=== PATIENT | female | born 1960 | race African-American/Black ===

== ENCOUNTER 2016-12-12 17:02 | Emergency (ER) | payer MEDICARE, MEDICAID ==
[~2016-12-12] VITALS: Ht 165.1 cm; Wt 110.0 kg
[~2016-12-12 17:02] MED LIST: AMIT25TA9 PO; AMLO5TAB4 PO; BACL-141 PO; CLOP75TA2 PO; LOSA50TA20 PO; METO-293 PO; PREG75CA PO
[2016-12-12] MEDS ORDERED: KETOROLAC 60MG/2ML VIAL IM ONE (18:15)
[2016-12-12] MEDS ORDERED: TRAMADOL 50MG TABLET PO ONE (18:15)
[2016-12-12] MEDS ORDERED: AMLODIPINE 5MG TABLET PO ONE (18:45)
[2016-12-12] MEDS ORDERED: HYDROCODONE/ACETAMINOPHEN 5/325MG TABLET PO PRN (20:30)
[2016-12-12 22:33] VITALS: BP 162/93
== END 2016-12-12 22:58 | disposition home or self-care (01) ==
LOC: ER 17:03
DX: M54.2 Cervicalgia (principal); R51 Headache; E78.00 Pure hypercholesterolemia, unspecified; I11.9 Hypertensive heart disease without heart failure; Z86.73 Personal history of transient ischemic attack (TIA), and cerebral infarction without residual deficits; Z95.1 Presence of aortocoronary bypass graft; Z79.899 Other long term (current) drug therapy; Z88.8 Allergy status to other drugs, medicaments and biological substances; Z91.011 Allergy to milk products
CPT/HCPCS: 72125; 96372; 99284; J1885; J7030

== ENCOUNTER 2017-04-27 13:28 | Emergency (ER) | payer MEDICARE, MEDICAID ==
[~2017-04-27] VITALS: Ht 162.6 cm; Wt 105.0 kg
[~2017-04-27 13:28] MED LIST changes: +CLOP75TA16 PO; -CLOP75TA2 PO
[2017-04-27] MEDS ORDERED: SODIUM CHLORIDE 0.9% 1,000 ML IV ONE (15:05)
[2017-04-27] MEDS ORDERED: ONDANSETRON HCL 4MG/2ML VIAL IV STA (15:05)
[2017-04-27] MEDS ORDERED: MECLIZINE 25MG TABLET PO ONE (15:15)
[2017-04-27 16:46] LABS: BASOPHILS % 0.4 % (0.0-2.0); EOSINOPHILS % 1.1 % (0.0-5.0); HEMATOCRIT. 39.4 % (36.0-48.0); HEMOGLOBIN. 13.2 g/dL (12.0-16.0); LYMPHOCYTES % 31.5 % (20.0-50.0); MEAN CORPUSCULAR HEMOGLOBIN 31.8 pg (28.0-32.0); MEAN CORPUSCULAR VOLUME 95.4 fL (81.0-99.0); MEAN PLATELET VOLUME 9.6 fl (7.4-10.4); MONOCYTES % 7.1 % (2.0-8.0); NEUTROPHILS % 59.9 % (40.0-76.0); PLATELET 239 x1000/uL (130-400); RED BLOOD CELL COUNT 4.13 mill/uL (4.2-5.4); RED CELL DISTRIBUTION WIDTH 13.1 % (11.6-14.6)
[2017-04-27 16:58] LABS: CARBON DIOXIDE 26 mEq/L (21-32); CHLORIDE 105 mEq/L (98-107)
[2017-04-27 19:14] LABS: CLARITY URINE CLEAR (CLEAR); COLOR URINE YELLOW (YELLOW); GLUCOSE URINE NEGATIVE (NEGATIVE); KETONES URINE NEGATIVE (NEGATIVE); LEUKOCYTE ESTERASE URINE TRACE (NEGATIVE); NITRITE URINE NEGATIVE (NEGATIVE); OCCULT BLOOD URINE NEGATIVE (NEGATIVE); PROTEIN URINE NEGATIVE (NEGATIVE); SPECIFIC GRAVITY URINE 1.015 (1.005-1.030)
[2017-04-27 19:30] VITALS: BP 124/85
[2017-04-27] MEDS ORDERED: ACETAMINOPHEN 325MG TABLET PO ONE (20:30)
== END 2017-04-27 21:40 | disposition home or self-care (01) ==
LOC: ER 13:28
DX: T67.5XXA Heat exhaustion, unspecified, initial encounter (principal); R53.1 Weakness; K21.9 Gastro-esophageal reflux disease without esophagitis; I10 Essential (primary) hypertension; F41.9 Anxiety disorder, unspecified; Z86.73 Personal history of transient ischemic attack (TIA), and cerebral infarction without residual deficits; Z98.890 Other specified postprocedural states; Z88.8 Allergy status to other drugs, medicaments and biological substances; Z91.013 Allergy to seafood; Z91.011 Allergy to milk products; Y92.89 Other specified places as the place of occurrence of the external cause
CPT/HCPCS: 36415; 80053; 81001; 84484; 85025; 96361; 96374; 99285; J2405; J7030; J8597

== ENCOUNTER 2017-06-10 15:29 | Inpatient (IN) | payer MEDICARE, MEDICAID ==
[~2017-06-10] VITALS: Ht 162.6 cm; Wt 104.3 kg
[2017-06-10] MEDS ORDERED: ASPIRIN 81MG TABLET PO STA (17:39)
[2017-06-10 18:09] LABS: BASOPHILS % 1.1 % (0.0-2.0); HEMATOCRIT. 42.1 % (36.0-48.0); HEMOGLOBIN. 14.3 g/dL (12.0-16.0); LYMPHOCYTES % 35.8 % (20.0-50.0); MEAN CORPUSCULAR HEMOGLOBIN 32.9 pg (28.0-32.0); MEAN CORPUSCULAR VOLUME 96.9 fL (81.0-99.0); MEAN PLATELET VOLUME 9.7 fl (7.4-10.4); MONOCYTES % 6.5 % (2.0-8.0); NEUTROPHILS % 53.6 % (40.0-76.0); PLATELET 255 x1000/uL (130-400); RED BLOOD CELL COUNT 4.34 mill/uL (4.2-5.4); RED CELL DISTRIBUTION WIDTH 13.8 % (11.6-14.6)
[2017-06-10 18:17] LABS: CARBON DIOXIDE 27 mEq/L (21-32); CHLORIDE 107 mEq/L (98-107)
[2017-06-10 18:18] LABS: D-DIMER 0.55 mg/L FEU (<0.50); INR 0.9; PARTIAL THROMBOPLASTIN TIME 25.1 sec (23.4-31.0); PROTHROMBIN TIME 9.8 sec (9.4-11.6)
[2017-06-10 18:23] LABS: TROPONIN I < 0.02 ng/mL (0.00-0.04)
[2017-06-10] MEDS: NITROGLYCERIN 0.4MG TABLET SL SL PRN ×2 (19:55→20:59)
[2017-06-10] MEDS ORDERED: IOHEXOL-350 100 ML BOTTLE ONE (20:36)
[2017-06-10 23:04] VITALS: BP 150/86
[2017-06-10 23:14] VITALS: BP 150/86
[2017-06-10] MEDS ORDERED: NA PHOS,M-B/NA PHOS,DI-BA ENEMA 118ML PR PRN (23:45)
[2017-06-10] MEDS ORDERED: ACETAMINOPHEN 325MG TABLET PO PRN (23:45)
[2017-06-10] MEDS ORDERED: IPRATROPIUM/ALBUTEROL 0.5-3(2.5)MG/3ML NEB INH PRN (23:45)
[2017-06-10] MEDS ORDERED: MAGNESIUM/ALUMINUM HYDROXIDE/SIMETHICONE 30ML UDC PO PRN (23:45)
[2017-06-10] MEDS ORDERED: ACETAMINOPHEN 650MG/20.3ML UDC GT PRN (23:45)
[2017-06-10] MEDS ORDERED: DOCUSATE SODIUM 100MG CAPSULE PO PRN (23:45)
[2017-06-10] MEDS ORDERED: ACETAMINOPHEN 650MG SUPP PR PRN (23:45)
[2017-06-10] MEDS ORDERED: HYDROCODONE/ACETAMINOPHEN 5/325MG TABLET PO PRN (23:45)
[2017-06-10] MEDS ORDERED: GUAIFENESIN 200MG/10ML SUGAR FREE UDC PO PRN (23:45)
[2017-06-10] MEDS ORDERED: CLONIDINE 0.1MG TABLET PO PRN (23:45)
[2017-06-10] MEDS ORDERED: DIPHENHYDRAMINE 50MG/ML VIAL IV PRN (23:45)
[2017-06-11] MEDS: SODIUM CHLORIDE 0.9% 1,000 ML IV SCH ×2 (01:00→17:24)
[2017-06-11] MEDS: ENOXAPARIN 30MG/0.3ML SYR SUBCUT SCH ×3 (01:02→21:17)
[2017-06-11 04:00] VITALS: BP 125/89
[2017-06-11] MEDS: ONDANSETRON HCL 4MG/2ML VIAL IV PRN ×4 (04:46→21:59)
[2017-06-11] MEDS: MORPHINE SULFATE 2 MG/ML CPJ (NOT FOR IM USE) IV PRN ×4 (04:47→22:00)
[2017-06-11 06:44] LABS: BASOPHILS % 0.9 % (0.0-2.0); EOSINOPHILS % 3.6 % (0.0-5.0); HEMOGLOBIN. 12.4 g/dL (12.0-16.0); LYMPHOCYTES % 32.9 % (20.0-50.0); MEAN CORPUSCULAR HEMOGLOBIN 33.4 pg (28.0-32.0); MEAN CORPUSCULAR VOLUME 96.9 fL (81.0-99.0); MEAN PLATELET VOLUME 9.6 fl (7.4-10.4); MONOCYTES % 7.2 % (2.0-8.0); NEUTROPHILS % 55.4 % (40.0-76.0); PLATELET 216 x1000/uL (130-400); RED BLOOD CELL COUNT 3.72 mill/uL (4.2-5.4); RED CELL DISTRIBUTION WIDTH 14.1 % (11.6-14.6)
[2017-06-11] MEDS: SODIUM CHLORIDE 0.9% INJ 3ML FLUSH IVF SCH ×3 (06:45→21:16)
[2017-06-11] MEDS ORDERED: BACLOFEN 10MG TABLET PO PRN (07:15)
[2017-06-11 08:00] VITALS: BP 145/88
[2017-06-11 08:14] LABS: CARBON DIOXIDE 25 mEq/L (21-32); CHLORIDE 108 mEq/L (98-107)
[2017-06-11 08:28] LABS: CREATINE KINASE 72 IU/L (26-192); HDL CHOLESTEROL 76 mg/dL (40-59); LDL CHOLESTEROL 76 mg/dL (5-100); TROPONIN I < 0.02 ng/mL (0.00-0.04)
[2017-06-11] MEDS: LOSARTAN POTASSIUM 50 MG TABLET PO SCH ×2 (08:39→21:17)
[2017-06-11] MEDS: PREGABALIN 75MG CAPSULE PO SCH ×3 (08:39→17:22)
[2017-06-11] MEDS: AMLODIPINE 5MG TABLET PO SCH (08:39)
[2017-06-11] MEDS: IPRATROPIUM/ALBUTEROL 0.5-3(2.5)MG/3ML NEB INH SCH ×3 (08:49→21:48)
[2017-06-11] MEDS: CLOPIDOGREL 75MG TABLET PO SCH (08:50)
[2017-06-11 12:00] VITALS: BP 140/93
[2017-06-11 12:38] LABS: T4 FREE 0.91 ng/dL (0.76-1.46)
[2017-06-11] MEDS: METOCLOPRAMIDE HCL 10MG TABLET PO SCH ×2 (14:04→17:22)
[2017-06-11 14:07] LABS: HEPATITIS B SURFACE ANTIGEN NEGATIVE
[2017-06-11 14:34] LABS: HEPATITIS B CORE AB IGM NEGATIVE
[2017-06-11 14:35] LABS: HEPATITIS A AB IGM NEGATIVE (NEGATIVE)
[2017-06-11 16:00] VITALS: BP 116/73
[2017-06-11 16:36] LABS: CREATINE KINASE 64 IU/L (26-192)
[2017-06-11 16:37] LABS: CREATINE KINASE MB FRACTION 0.7 ng/mL (0.5-3.6); TROPONIN I < 0.02 ng/mL (0.00-0.04)
[2017-06-11 20:00] VITALS: BP 132/77
[2017-06-11] MEDS: AMITRIPTYLINE 50MG TABLET PO SCH (21:17)
[2017-06-12] VITALS (7 sets, daily range): BP systolic 122–160; BP diastolic 71–94
[2017-06-12] MEDS: IPRATROPIUM/ALBUTEROL 0.5-3(2.5)MG/3ML NEB INH SCH ×3 (02:12→20:44)
[2017-06-12] MEDS: SODIUM CHLORIDE 0.9% INJ 3ML FLUSH IVF SCH ×3 (05:47→21:01)
[2017-06-12] MEDS: METOCLOPRAMIDE HCL 10MG TABLET PO SCH ×3 (05:55→17:33)
[2017-06-12] MEDS: ONDANSETRON HCL 4MG/2ML VIAL IV PRN (06:32)
[2017-06-12] MEDS: MORPHINE SULFATE 2 MG/ML CPJ (NOT FOR IM USE) IV PRN ×3 (06:33→14:57)
[2017-06-12] MEDS: PREGABALIN 75MG CAPSULE PO SCH ×3 (08:22→17:33)
[2017-06-12] MEDS: CLOPIDOGREL 75MG TABLET PO SCH (08:22)
[2017-06-12] MEDS: ENOXAPARIN 30MG/0.3ML SYR SUBCUT SCH ×2 (08:23→21:00)
[2017-06-12] MEDS: ASPIRIN 81MG TABLET PO SCH ×2 (08:23→08:24)
[2017-06-12] MEDS: AMLODIPINE 5MG TABLET PO SCH (08:23)
[2017-06-12] MEDS: LOSARTAN POTASSIUM 50 MG TABLET PO SCH ×2 (08:23→21:00)
[2017-06-12] MEDS ORDERED: REGADENOSON 0.4 MG/5 ML IV NR (08:45)
[2017-06-12] MEDS: SODIUM CHLORIDE 0.9% 1,000 ML IV SCH (12:38)
[2017-06-12] MEDS: AMITRIPTYLINE 50MG TABLET PO SCH (21:00)
== END 2017-06-12 22:40 | disposition home or self-care (01) | DRG 392 ==
LOC: ER 17:17 → 8WST 19:10 → EDBEDREQ 19:12 → ENRESERV 19:55
PROVIDERS: ADMIT Family Medicine; ATTEND Family Medicine
DX: K21.9 Gastro-esophageal reflux disease without esophagitis (principal); E11.40 Type 2 diabetes mellitus with diabetic neuropathy, unspecified; I11.0 Hypertensive heart disease with heart failure; I50.9 Heart failure, unspecified; F11.20 Opioid dependence, uncomplicated; I25.10 Atherosclerotic heart disease of native coronary artery without angina pectoris; E78.5 Hyperlipidemia, unspecified; Z86.73 Personal history of transient ischemic attack (TIA), and cerebral infarction without residual deficits; Z98.84 Bariatric surgery status; F41.9 Anxiety disorder, unspecified; Z88.8 Allergy status to other drugs, medicaments and biological substances; Z91.011 Allergy to milk products; Z91.013 Allergy to seafood
CPT/HCPCS: 36415; 71010; 71275; 80048; 80053; 80061; 82550; 82553; 83036; 83880; 84439; 84443; 84484; 85025; 85379; 85610; 85730; 86705; 86709; 86803; 87340; 93005; 93306; 93970; 93971; 94640; 94664; 99285; J1650; J2270; J2405; J7030; J7620; J8597; Q9967

== ENCOUNTER 2017-09-15 10:43 | Emergency (ER) | payer MEDICARE, MEDICAID ==
[~2017-09-15] VITALS: Ht 165.1 cm; Wt 83.0 kg
[2017-09-15] MEDS ORDERED: PANT40TA4 PO (10:50)
[2017-09-15] MEDS ORDERED: PREG50CA PO (10:50)
[2017-09-15] MEDS ORDERED: ATOR10TA69 PO (10:50)
[2017-09-15] MEDS ORDERED: MECL-109 PO (10:50)
[2017-09-15] MEDS ORDERED: RANI300T4 PO (10:50)
[2017-09-15] MEDS ORDERED: MELA3TAB PO (10:50)
[2017-09-15] MEDS ORDERED: MORPHINE SULFATE 4 MG/ML CPJ (NOT FOR IM USE) IV STA (10:58)
[2017-09-15 11:35] LABS: CHLORIDE 105 mEq/L (98-107)
[2017-09-15 11:38] LABS: BASOPHILS % 0.5 % (0.0-2.0); EOSINOPHILS % 1.3 % (0.0-5.0); HEMATOCRIT. 41.8 % (36.0-48.0); HEMOGLOBIN. 13.9 g/dL (12.0-16.0); LYMPHOCYTES % 24.2 % (20.0-50.0); MEAN CORPUSCULAR HEMOGLOBIN 32.4 pg (28.0-32.0); MEAN CORPUSCULAR VOLUME 97.6 fL (81.0-99.0); MEAN PLATELET VOLUME 9.3 fl (7.4-10.4); MONOCYTES % 6.1 % (2.0-8.0); NEUTROPHILS % 67.9 % (40.0-76.0); PLATELET 268 x1000/uL (130-400); RED BLOOD CELL COUNT 4.28 mill/uL (4.2-5.4); RED CELL DISTRIBUTION WIDTH 13.4 % (11.6-14.6)
[2017-09-15 11:42] LABS: PROTHROMBIN TIME 10.3 sec (9.4-11.6)
[2017-09-15 11:44] LABS: CARBON DIOXIDE 27 mEq/L (21-32)
[2017-09-15 13:22] LABS: CLARITY URINE CLEAR (CLEAR); COLOR URINE YELLOW (YELLOW); KETONES URINE NEGATIVE (NEGATIVE); LEUKOCYTE ESTERASE URINE NEGATIVE (NEGATIVE); NITRITE URINE NEGATIVE (NEGATIVE); OCCULT BLOOD URINE NEGATIVE (NEGATIVE); PH URINE 7.5 (4.5-8.0); PROTEIN URINE NEGATIVE (NEGATIVE); SPECIFIC GRAVITY URINE 1.015 (1.005-1.030)
[2017-09-15 14:34] VITALS: BP 159/60
== END 2017-09-15 15:29 | disposition home or self-care (01) ==
LOC: ER 10:54
DX: R10.9 Unspecified abdominal pain (principal); F41.9 Anxiety disorder, unspecified; I10 Essential (primary) hypertension; K21.9 Gastro-esophageal reflux disease without esophagitis; F31.9 Bipolar disorder, unspecified; Z95.1 Presence of aortocoronary bypass graft; Z86.73 Personal history of transient ischemic attack (TIA), and cerebral infarction without residual deficits; Z90.49 Acquired absence of other specified parts of digestive tract; Z98.84 Bariatric surgery status
CPT/HCPCS: 36415; 74176; 80053; 81003; 83690; 85025; 85610; 96374; 99285; J2270

== ENCOUNTER 2017-12-01 15:47 | Emergency (ER) | payer MEDICARE, MEDICAID ==
[~2017-12-01] VITALS: Ht 162.6 cm; Wt 131.0 kg
[~2017-12-01 15:47] MED LIST changes: +ATOR10TA69 PO; +MECL-109 PO; +MELA3TAB PO; +PANT40TA4 PO; +PREG50CA PO; +RANI300T4 PO
[2017-12-01 16:05] VITALS: BP 139/89
== END 2017-12-01 20:07 | disposition left against medical advice (07) ==
LOC: ER 15:47
DX: H53.8 Other visual disturbances (principal); R51 Headache; I10 Essential (primary) hypertension; I69.354 Hemiplegia and hemiparesis following cerebral infarction affecting left non-dominant side; Z98.84 Bariatric surgery status
CPT/HCPCS: 99281

== ENCOUNTER 2018-01-15 18:02 | Emergency (ER) | payer MEDICARE, MEDICAID ==
[~2018-01-15] VITALS: Ht 167.6 cm; Wt 110.0 kg
[2018-01-15] MEDS ORDERED: HYDROCODONE/ACETAMINOPHEN 10/325MG TABLET PO ONE (19:30)
[2018-01-15 23:29] VITALS: BP 135/79
== END 2018-01-16 00:51 | disposition home or self-care (01) ==
LOC: ER 18:23
DX: M79.605 Pain in left leg (principal); F31.9 Bipolar disorder, unspecified; K21.9 Gastro-esophageal reflux disease without esophagitis; F41.9 Anxiety disorder, unspecified; I10 Essential (primary) hypertension; Z86.73 Personal history of transient ischemic attack (TIA), and cerebral infarction without residual deficits; Z95.1 Presence of aortocoronary bypass graft; Z98.84 Bariatric surgery status; Z88.8 Allergy status to other drugs, medicaments and biological substances; Z91.011 Allergy to milk products; Z79.01 Long term (current) use of anticoagulants; W05.0XXA Fall from non-moving wheelchair, initial encounter; Y93.89 Activity, other specified; Y92.89 Other specified places as the place of occurrence of the external cause; Y99.8 Other external cause status
CPT/HCPCS: 72170; 73552; 73560; 73610; 73630; 99284

== ENCOUNTER 2018-03-16 14:18 | Emergency (ER) | payer BC, MEDICAID, MEDICARE ==
[~2018-03-16] VITALS: Ht 162.6 cm; Wt 105.0 kg
[~2018-03-16 14:18] MED LIST changes: +LEVO250T2 MT
[2018-03-16] MEDS ORDERED: SODIUM CHLORIDE 0.9% 1,000 ML IV ONE (16:18)
[2018-03-16] MEDS ORDERED: ONDANSETRON HCL 4MG/2ML VIAL IV STA ×2 (16:18→19:33)
[2018-03-16] MEDS ORDERED: KETOROLAC 30MG/ML VIAL IV STA (16:18)
[2018-03-16 17:55] LABS: BASOPHILS % 0.6 % (0.0-2.0); EOSINOPHILS % 1.6 % (0.0-5.0); HEMATOCRIT. 37.1 % (36.0-48.0); HEMOGLOBIN. 12.4 g/dL (12.0-16.0); LYMPHOCYTES % 34.6 % (20.0-50.0); MEAN CORPUSCULAR HEMOGLOBIN 32.5 pg (28.0-32.0); MEAN CORPUSCULAR VOLUME 97.3 fL (81.0-99.0); MONOCYTES % 6.4 % (2.0-8.0); NEUTROPHILS % 56.8 % (40.0-76.0); RED BLOOD CELL COUNT 3.81 mill/uL (4.2-5.4); RED CELL DISTRIBUTION WIDTH 13.3 % (11.6-14.6)
[2018-03-16] MEDS ORDERED: FAMOTIDINE 20MG/2ML VIAL IV STA (17:55)
[2018-03-16 18:06] LABS: CHLORIDE 106 mEq/L (98-107)
[2018-03-16 18:10] LABS: ETHANOL BLOOD < 10 mg/dL
[2018-03-16 18:36] LABS: PLATELET 229 x1000/uL (130-400)
[2018-03-16 18:37] LABS: MEAN PLATELET VOLUME 9.7 fl (7.4-10.4)
[2018-03-16] MEDS ORDERED: MORPHINE SULFATE 4 MG/ML CPJ (NOT FOR IM USE) IV STA (19:33)
[2018-03-16 19:46] LABS: CLARITY URINE CLEAR (CLEAR); COLOR URINE YELLOW (YELLOW); KETONES URINE NEGATIVE (NEGATIVE); LEUKOCYTE ESTERASE URINE NEGATIVE (NEGATIVE); NITRITE URINE NEGATIVE (NEGATIVE); OCCULT BLOOD URINE NEGATIVE (NEGATIVE); PH URINE 5.5 (4.5-8.0); PROTEIN URINE NEGATIVE (NEGATIVE); SPECIFIC GRAVITY URINE 1.007 (1.005-1.030); UROBILINOGEN URINE 0.2 E.U./dL (0.2-1.0)
[2018-03-16] MEDS ORDERED: IOHEXOL-300 100 ML BOTTLE ONE (21:13)
[2018-03-17 00:06] VITALS: BP 120/64
== END 2018-03-17 00:23 | disposition home or self-care (01) ==
LOC: ER 14:27
DX: R10.84 Generalized abdominal pain (principal); I10 Essential (primary) hypertension; E78.00 Pure hypercholesterolemia, unspecified; I69.354 Hemiplegia and hemiparesis following cerebral infarction affecting left non-dominant side; Z88.8 Allergy status to other drugs, medicaments and biological substances; Z91.011 Allergy to milk products; Z91.013 Allergy to seafood
CPT/HCPCS: 36415; 74177; 80053; 81003; 83690; 84484; 85025; 85610; 93005; 96374; 96375; 96376; 99285; G0482; J1885; J2270; J2405; J3490; J7030; Q9967

== ENCOUNTER 2018-03-22 06:15 | Emergency (ER) | payer OTHER, MEDICAID ==
[~2018-03-22] VITALS: Ht 162.6 cm; Wt 118.0 kg
[2018-03-22] MEDS ORDERED: OXYCODONE HCL/ACETAMINOPHEN 5/325MG TABLET PO ONE ×2 (07:45→10:15)
[2018-03-22 10:31] VITALS: BP 148/94
== END 2018-03-22 10:36 | disposition home or self-care (01) ==
LOC: ER 08:11
DX: S50.02XA Contusion of left elbow, initial encounter (principal); S70.02XA Contusion of left hip, initial encounter; I69.354 Hemiplegia and hemiparesis following cerebral infarction affecting left non-dominant side; M19.90 Unspecified osteoarthritis, unspecified site; E78.00 Pure hypercholesterolemia, unspecified; I10 Essential (primary) hypertension; M47.896 Other spondylosis, lumbar region; Z88.8 Allergy status to other drugs, medicaments and biological substances; Z91.011 Allergy to milk products; Z91.013 Allergy to seafood; Z98.84 Bariatric surgery status; W07.XXXA Fall from chair, initial encounter; Y93.E1 Activity, personal bathing and showering; Y92.121 Bathroom in nursing home as the place of occurrence of the external cause
CPT/HCPCS: 72170; 73070; 99284

== ENCOUNTER 2018-03-28 13:54 | Emergency (ER) | payer OTHER, MEDICAID ==
[~2018-03-28] VITALS: Ht 167.6 cm; Wt 100.0 kg
[2018-03-28] MEDS ORDERED: SODIUM CHLORIDE 0.9% 1,000 ML IV ONE (16:00)
[2018-03-28] MEDS ORDERED: FAMOTIDINE 20MG/2ML VIAL IV STA (16:00)
[2018-03-28] MEDS ORDERED: MORPHINE SULFATE 4 MG/ML CPJ (NOT FOR IM USE) IV STA (16:00)
[2018-03-28] MEDS ORDERED: ONDANSETRON HCL 4MG/2ML VIAL IV STA (16:00)
[2018-03-28] MEDS ORDERED: MORPHINE SULFATE 4 MG/ML CPJ (NOT FOR IM USE) IV ONE ×2 (18:45→18:55)
[2018-03-28] MEDS ORDERED: ONDANSETRON HCL 4MG/2ML VIAL IV ONE (18:45)
[2018-03-28] MEDS ORDERED: KETOROLAC 30MG/ML VIAL IV ONE (18:45)
[2018-03-28 19:14] LABS: CLARITY URINE CLEAR (CLEAR); COLOR URINE YELLOW (YELLOW); KETONES URINE NEGATIVE (NEGATIVE); LEUKOCYTE ESTERASE URINE TRACE (NEGATIVE); NITRITE URINE NEGATIVE (NEGATIVE); OCCULT BLOOD URINE NEGATIVE (NEGATIVE); PROTEIN URINE NEGATIVE (NEGATIVE); SPECIFIC GRAVITY URINE 1.012 (1.005-1.030)
[2018-03-28 19:30] LABS: *AMPHETAMINES SCREEN URINE NEGATIVE (NEGATIVE); *BARBITURATES SCREEN URINE NEGATIVE (NEGATIVE); *BENZODIAZEPINES SCREEN URINE NEGATIVE (NEGATIVE); *COCAINE SCREEN URINE NEGATIVE (NEGATIVE)
[2018-03-28 19:31] LABS: CANNABINOID URINE SCREEN NEGATIVE (NEGATIVE); METHADONE URINE SCREEN NEGATIVE (NEGATIVE); OPIATES URINE SCREEN PRESUMTIVE POSITIVE (NEGATIVE); PHENCYCLIDINE URINE SCREEN NEGATIVE (NEGATIVE)
[2018-03-28] MEDS ORDERED: ONDANSETRON HCL 4MG/2ML VIAL IV SCH (19:45)
[2018-03-28] MEDS ORDERED: MORPHINE SULFATE 4 MG/ML CPJ (NOT FOR IM USE) IV SCH (19:45)
[2018-03-28 20:07] LABS: BASOPHILS % 0.3 % (0.0-2.0); EOSINOPHILS % 2.7 % (0.0-5.0); HEMATOCRIT. 37.1 % (36.0-48.0); HEMOGLOBIN. 12.4 g/dL (12.0-16.0); LYMPHOCYTES % 36.2 % (20.0-50.0); MEAN CORPUSCULAR HEMOGLOBIN 32.7 pg (28.0-32.0); MEAN CORPUSCULAR VOLUME 97.6 fL (81.0-99.0); MEAN PLATELET VOLUME 9.4 fl (7.4-10.4); MONOCYTES % 8.7 % (2.0-8.0); NEUTROPHILS % 52.1 % (40.0-76.0); PLATELET 195 x1000/uL (130-400); RED CELL DISTRIBUTION WIDTH 13.5 % (11.6-14.6)
[2018-03-28 20:15] LABS: PROTHROMBIN TIME 10.6 sec (9.4-11.6)
[2018-03-28 20:21] LABS: CHLORIDE 107 mEq/L (98-107)
[2018-03-28 20:30] LABS: ETHANOL BLOOD < 10 mg/dL
[2018-03-28 22:20] VITALS: BP 136/71
== END 2018-03-28 23:25 | disposition home or self-care (01) ==
LOC: ER 15:17 → CANBEDREQ 21:20 → ER 23:25
DX: K21.9 Gastro-esophageal reflux disease without esophagitis (principal); K29.70 Gastritis, unspecified, without bleeding; N39.0 Urinary tract infection, site not specified; E78.00 Pure hypercholesterolemia, unspecified; I10 Essential (primary) hypertension; Z86.73 Personal history of transient ischemic attack (TIA), and cerebral infarction without residual deficits; Z88.8 Allergy status to other drugs, medicaments and biological substances; Z88.6 Allergy status to analgesic agent; Z91.09 Other allergy status, other than to drugs and biological substances; Z91.011 Allergy to milk products; Z98.84 Bariatric surgery status; Z90.49 Acquired absence of other specified parts of digestive tract; Z91.013 Allergy to seafood; Z79.899 Other long term (current) drug therapy
CPT/HCPCS: 36415; 71045; 74176; 80053; 80305; 81003; 83690; 83880; 84484; 85025; 85610; 93005; 96374; 96375; 96376; 99285; G0482; J1885; J2270; J2405; J3490; J7030

== ENCOUNTER 2018-05-11 20:39 | Emergency (ER) | payer OTHER, MEDICAID | END 2018-05-12 | disposition left against medical advice (07) | LOC: ER 20:39 | DX: Z53.21 Procedure and treatment not carried out due to patient leaving prior to being seen by health care provider (principal) ==

== ENCOUNTER 2018-05-27 22:22 | Emergency (ER) | payer OTHER, MEDICAID ==
[~2018-05-27] VITALS: Ht 162.6 cm; Wt 113.0 kg
[2018-05-28 02:49] LABS: CHLORIDE 103 mEq/L (98-107)
[2018-05-28] MEDS ORDERED: HYDROCODONE/ACETAMINOPHEN 5/325MG TABLET PO STA ×2 (03:00→07:35)
[2018-05-28 03:24] LABS: BASOPHILS % 0.3 % (0.0-2.0); EOSINOPHILS % 1.9 % (0.0-5.0); HEMOGLOBIN. 13.2 g/dL (12.0-16.0); MEAN CORPUSCULAR HEMOGLOBIN 32.9 pg (28.0-32.0); MEAN CORPUSCULAR VOLUME 97.2 fL (81.0-99.0); MEAN PLATELET VOLUME 9.5 fl (7.4-10.4); MONOCYTES % 8.6 % (2.0-8.0); NEUTROPHILS % 58.2 % (40.0-76.0); PLATELET 244 x1000/uL (130-400); RED BLOOD CELL COUNT 4.01 mill/uL (4.2-5.4); RED CELL DISTRIBUTION WIDTH 13.5 % (11.6-14.6)
[2018-05-28] MEDS ORDERED: LIDOCAINE HCL 1% 10 MG/ML 10ML VIAL INJ ONE (07:45)
[2018-05-28] MEDS ORDERED: CEFTRIAXONE SODIUM 1 G/VIAL IM ONE (07:45)
[2018-05-28 08:14] VITALS: BP 154/76
[2018-05-28 08:33] LABS: CLARITY URINE CLEAR (CLEAR); COLOR URINE YELLOW (YELLOW); KETONES URINE TRACE (NEGATIVE); LEUKOCYTE ESTERASE URINE 1+ (NEGATIVE); NITRITE URINE NEGATIVE (NEGATIVE); OCCULT BLOOD URINE NEGATIVE (NEGATIVE); PH URINE 5.5 (4.5-8.0); PROTEIN URINE NEGATIVE (NEGATIVE); SPECIFIC GRAVITY URINE 1.018 (1.005-1.030)
== END 2018-05-28 08:38 | disposition home or self-care (01) ==
LOC: ER 22:22
DX: S90.32XA Contusion of left foot, initial encounter (principal); W23.0XXA Caught, crushed, jammed, or pinched between moving objects, initial encounter; Y93.89 Activity, other specified; Y92.89 Other specified places as the place of occurrence of the external cause; N39.0 Urinary tract infection, site not specified; R07.89 Other chest pain; N76.0 Acute vaginitis; I10 Essential (primary) hypertension; Z88.8 Allergy status to other drugs, medicaments and biological substances; Z86.73 Personal history of transient ischemic attack (TIA), and cerebral infarction without residual deficits; Z79.82 Long term (current) use of aspirin; Z79.899 Other long term (current) drug therapy
CPT/HCPCS: 36415; 71045; 73610; 73630; 80053; 81003; 84484; 85025; 93005; 96372; 99285; J0696; J3490; Z7610

== ENCOUNTER 2018-06-02 23:56 | Inpatient (IN) | payer OTHER, MEDICAID ==
[~2018-06-02] VITALS: Ht 162.6 cm; Wt 109.3 kg
[2018-06-03] VITALS (7 sets, daily range): BP systolic 87–141; BP diastolic 51–82
[2018-06-03] MEDS ORDERED: MORPHINE SULFATE 4 MG/ML CPJ (NOT FOR IM USE) IV STA (00:37)
[2018-06-03] MEDS ORDERED: NITROGLYCERIN OINT 1GM/INCH UDPKT TD ONE (00:45)
[2018-06-03 01:14] LABS: BASOPHILS % 0.5 % (0.0-2.0); EOSINOPHILS % 2.2 % (0.0-5.0); HEMATOCRIT. 39.6 % (36.0-48.0); HEMOGLOBIN. 13.3 g/dL (12.0-16.0); LYMPHOCYTES % 38.7 % (20.0-50.0); MEAN CORPUSCULAR HEMOGLOBIN 32.7 pg (28.0-32.0); MEAN CORPUSCULAR VOLUME 97.5 fL (81.0-99.0); MEAN PLATELET VOLUME 10.1 fl (7.4-10.4); MONOCYTES % 6.7 % (2.0-8.0); NEUTROPHILS % 51.9 % (40.0-76.0); PLATELET 251 x1000/uL (130-400); RED BLOOD CELL COUNT 4.06 mill/uL (4.2-5.4); RED CELL DISTRIBUTION WIDTH 13.8 % (11.6-14.6)
[2018-06-03 01:22] LABS: CHLORIDE 103 mEq/L (98-107); INR 0.9; PROTHROMBIN TIME 9.5 sec (9.1-11.1)
[2018-06-03] MEDS ORDERED: CLONIDINE 0.1MG TABLET PO PRN (04:00)
[2018-06-03] MEDS ORDERED: ACETAMINOPHEN 325MG TABLET PO PRN (04:00)
[2018-06-03] MEDS ORDERED: PREG75CA PO (04:02)
[2018-06-03] MEDS ORDERED: HYDR-4009 MT (04:16)
[2018-06-03] MEDS ORDERED: ONDA4TAB11 SL (04:16)
[2018-06-03] MEDS ORDERED: ESCI10TA54 MT (05:10)
[2018-06-03] MEDS ORDERED: FESO8TAB MT ×3 (05:14→05:16)
[2018-06-03] MEDS ORDERED: LIDO30CR TP (05:19)
[2018-06-03] MEDS: MORPHINE SULFATE 4 MG/ML CPJ (NOT FOR IM USE) IV PRN ×3 (05:34→19:53)
[2018-06-03] MEDS: ONDANSETRON HCL 4MG/2ML INJ IV PRN ×3 (05:39→20:01)
[2018-06-03] MEDS ORDERED: ASPIRIN 81MG EC TABLET PO SCH (09:00)
[2018-06-03] MEDS: AMLODIPINE 10MG TABLET PO SCH (09:19)
[2018-06-03] MEDS: ENOXAPARIN 30MG/0.3ML SYR SUBCUT SCH ×2 (09:21→20:02)
[2018-06-03 12:26] LABS: CREATINE KINASE 119 IU/L (26-192)
[2018-06-03] MEDS ORDERED: CLOPIDOGREL 75MG TABLET PO SCH (13:00)
[2018-06-03] MEDS: CLOPIDOGREL 75MG TABLET PO SCH (13:08)
[2018-06-03] MEDS: LOSARTAN POTASSIUM 50 MG TABLET PO SCH (13:08)
[2018-06-03] MEDS: METOCLOPRAMIDE HCL 10MG TABLET PO SCH (16:52)
[2018-06-03 16:58] LABS: CREATINE KINASE 123 IU/L (26-192)
[2018-06-03] MEDS: ATORVASTATIN CALCIUM 10MG TABLET PO SCH (20:02)
[2018-06-03] MEDS ORDERED: ATORVASTATIN CALCIUM 10MG TABLET PO SCH (21:00)
[2018-06-03] MEDS: ZOLPIDEM TARTRATE 5MG TABLET PO PRN (21:24)
[2018-06-03] MEDS: HYDROCODONE/ACETAMINOPHEN 5/325MG TABLET PO PRN (21:24)
[2018-06-04] VITALS: BP_SYST 122; BP_SYST 140; BP_DIAS 61; BP_DIAS 71
[2018-06-04] MEDS: METOCLOPRAMIDE HCL 10MG TABLET PO SCH ×4 (00:21→18:02)
[2018-06-04] MEDS: MORPHINE SULFATE 4 MG/ML CPJ (NOT FOR IM USE) IV PRN ×4 (00:21→22:12)
[2018-06-04 04:00] VITALS: BP 130/65
[2018-06-04] MEDS: HYDROCODONE/ACETAMINOPHEN 5/325MG TABLET PO PRN ×2 (06:11→20:05)
[2018-06-04 07:18] LABS: BASOPHILS % 0.4 % (0.0-2.0); EOSINOPHILS % 3.2 % (0.0-5.0); HEMATOCRIT. 37.8 % (36.0-48.0); HEMOGLOBIN. 12.4 g/dL (12.0-16.0); LYMPHOCYTES % 46.8 % (20.0-50.0); MEAN CORPUSCULAR HEMOGLOBIN 32.5 pg (28.0-32.0); MEAN CORPUSCULAR VOLUME 99.1 fL (81.0-99.0); MEAN PLATELET VOLUME 9.5 fl (7.4-10.4); MONOCYTES % 8.2 % (2.0-8.0); NEUTROPHILS % 41.4 % (40.0-76.0); PLATELET 215 x1000/uL (130-400); RED BLOOD CELL COUNT 3.82 mill/uL (4.2-5.4); RED CELL DISTRIBUTION WIDTH 13.6 % (11.6-14.6)
[2018-06-04 07:59] LABS: CHLORIDE 104 mEq/L (98-107)
[2018-06-04 08:00] VITALS: BP 140/75
[2018-06-04 08:14] LABS: LDL CHOLESTEROL 58 mg/dL (5-100)
[2018-06-04 08:15] LABS: HDL CHOLESTEROL 42 mg/dL (40-59)
[2018-06-04] MEDS: CLOPIDOGREL 75MG TABLET PO SCH (09:28)
[2018-06-04] MEDS: LOSARTAN POTASSIUM 50 MG TABLET PO SCH (09:29)
[2018-06-04] MEDS: AMLODIPINE 10MG TABLET PO SCH (09:29)
[2018-06-04] MEDS: ENOXAPARIN 30MG/0.3ML SYR SUBCUT SCH ×2 (09:29→20:05)
[2018-06-04] MEDS: ONDANSETRON HCL 4MG/2ML INJ IV PRN ×2 (10:12→22:12)
[2018-06-04] MEDS ORDERED: DOBUTAMINE 250MG PREMIX 250 ML IV NR (10:30)
[2018-06-04 11:46] LABS: T4 FREE 0.94 ng/dL (0.76-1.46)
[2018-06-04] MEDS ORDERED: DOBUTAMINE 250MG PREMIX 250 ML IV ONE (11:50)
[2018-06-04 12:00] VITALS: BP 118/51
[2018-06-04 16:00] VITALS: BP 124/60
[2018-06-04 16:17] LABS: CREATINE KINASE 88 IU/L (26-192); CREATINE KINASE MB FRACTION 1.1 ng/mL (0.5-3.6)
[2018-06-04 20:00] VITALS: BP 155/80
[2018-06-04] MEDS: ATORVASTATIN CALCIUM 10MG TABLET PO SCH (20:05)
[2018-06-05] MEDS: HYDROCODONE/ACETAMINOPHEN 5/325MG TABLET PO PRN ×2 (00:03→21:40)
[2018-06-05] MEDS: METOCLOPRAMIDE HCL 10MG TABLET PO SCH ×4 (00:03→17:38)
[2018-06-05] MEDS: ZOLPIDEM TARTRATE 5MG TABLET PO PRN ×2 (00:04→21:40)
[2018-06-05 04:00] VITALS: BP 125/63
[2018-06-05] MEDS: MORPHINE SULFATE 4 MG/ML CPJ (NOT FOR IM USE) IV PRN ×3 (06:11→20:09)
[2018-06-05 08:00] VITALS: BP 139/67
[2018-06-05] MEDS: CLOPIDOGREL 75MG TABLET PO SCH (09:20)
[2018-06-05] MEDS: ENOXAPARIN 30MG/0.3ML SYR SUBCUT SCH ×2 (09:20→20:08)
[2018-06-05] MEDS: LOSARTAN POTASSIUM 50 MG TABLET PO SCH (09:21)
[2018-06-05] MEDS: AMLODIPINE 10MG TABLET PO SCH (09:21)
[2018-06-05 12:00] VITALS: BP 160/77
[2018-06-05 12:44] LABS: CREATINE KINASE 86 IU/L (26-192); CREATINE KINASE MB FRACTION < 1.0 ng/mL (0.5-3.6)
[2018-06-05] MEDS: ONDANSETRON HCL 4MG/2ML INJ IV PRN (15:53)
[2018-06-05 16:00] VITALS: BP 159/73
[2018-06-05 20:00] VITALS: BP 139/72
[2018-06-05] MEDS: ATORVASTATIN CALCIUM 10MG TABLET PO SCH (20:08)
[2018-06-05] MEDS: MICONAZOLE NITRATE 100MG VAG SUPP VG SCH (20:10)
[2018-06-05 21:39] VITALS: BP 136/68
[2018-06-06] VITALS (7 sets, daily range): BP systolic 111–146; BP diastolic 57–70
[2018-06-06] MEDS: METOCLOPRAMIDE HCL 10MG TABLET PO SCH ×5 (00:56→23:42)
[2018-06-06] MEDS: MORPHINE SULFATE 4 MG/ML CPJ (NOT FOR IM USE) IV PRN ×3 (00:56→23:43)
[2018-06-06] MEDS: HYDROCODONE/ACETAMINOPHEN 5/325MG TABLET PO PRN ×2 (06:04→21:36)
[2018-06-06] MEDS: ENOXAPARIN 30MG/0.3ML SYR SUBCUT SCH ×2 (08:36→20:42)
[2018-06-06] MEDS: AMLODIPINE 10MG TABLET PO SCH (08:36)
[2018-06-06] MEDS: LOSARTAN POTASSIUM 50 MG TABLET PO SCH (08:36)
[2018-06-06] MEDS: CLOPIDOGREL 75MG TABLET PO SCH (08:37)
[2018-06-06] MEDS: ONDANSETRON HCL 4MG/2ML INJ IV PRN ×2 (13:40→23:42)
[2018-06-06] MEDS: ATORVASTATIN CALCIUM 10MG TABLET PO SCH (20:39)
[2018-06-06] MEDS: ZOLPIDEM TARTRATE 5MG TABLET PO PRN (20:40)
[2018-06-06] MEDS: MICONAZOLE NITRATE 100MG VAG SUPP VG SCH (22:00)
[2018-06-07] VITALS: BP 116/65
[2018-06-07 04:00] VITALS: BP 132/72
[2018-06-07] MEDS: METOCLOPRAMIDE HCL 10MG TABLET PO SCH ×2 (05:54→12:16)
[2018-06-07] MEDS: HYDROCODONE/ACETAMINOPHEN 5/325MG TABLET PO PRN ×2 (06:30→12:16)
[2018-06-07 08:00] VITALS: BP 127/69
[2018-06-07] MEDS: CLOPIDOGREL 75MG TABLET PO SCH (08:31)
[2018-06-07] MEDS: AMLODIPINE 10MG TABLET PO SCH (08:31)
[2018-06-07] MEDS: ENOXAPARIN 30MG/0.3ML SYR SUBCUT SCH (08:31)
[2018-06-07] MEDS: LOSARTAN POTASSIUM 50 MG TABLET PO SCH (08:31)
[2018-06-07 12:00] VITALS: BP 140/56
[2018-06-07 16:00] VITALS: BP 137/86
[2018-06-07 17:23] VITALS: BP 136/76
== END 2018-06-07 18:00 | DRG 206 ==
LOC: ER 23:56 → 5WST 06-03 01:47 → EDBEDREQ 06-03 02:12 → EDBEDREQTM 06-03 02:12 → ENRESERV 06-03 02:35
PROVIDERS: ADMIT Hospitalist; ATTEND Hospitalist
DX: M94.0 Chondrocostal junction syndrome [Tietze] (principal); I69.354 Hemiplegia and hemiparesis following cerebral infarction affecting left non-dominant side; E78.00 Pure hypercholesterolemia, unspecified; E78.5 Hyperlipidemia, unspecified; I10 Essential (primary) hypertension; Z88.6 Allergy status to analgesic agent; Z88.8 Allergy status to other drugs, medicaments and biological substances; Z91.011 Allergy to milk products; Z91.013 Allergy to seafood; Z79.899 Other long term (current) drug therapy
CPT/HCPCS: 36415; 71045; 80061; 82550; 82553; 82962; 83036; 83605; 83880; 84439; 84443; 84484; 85379; 93005; 93306; 93350; 93970; 96374; 99285; J1250; J1650; J2270; J2405; J8597

== ENCOUNTER 2018-12-04 16:27 | Inpatient (IN) | payer BC, MEDICAID, MEDICARE, OTHER ==
[~2018-12-04] VITALS: Ht 162.6 cm; Wt 112.5 kg
[~2018-12-04 16:27] MED LIST changes: +ESCI10TA54 MT; +FESO8TAB MT; +HYDR-4009 MT; -LEVO250T2 MT; +LIDO30CR TP; +ONDA4TAB11 SL; -PREG50CA PO
[2018-12-04] MEDS ORDERED: HYDROCODONE/ACETAMINOPHEN 10/325MG TABLET PO ONE (19:30)
[2018-12-04] MEDS ORDERED: ONDANSETRON HCL 4MG/2ML INJ IV STA (23:31)
[2018-12-04] MEDS ORDERED: MORPHINE SULFATE 4 MG/ML CPJ (NOT FOR IM USE) IV STA (23:31)
[2018-12-04 23:54] LABS: BASOPHILS % 0.7 % (0.0-2.0); EOSINOPHILS % 1.8 % (0.0-5.0); HEMATOCRIT. 37.2 % (36.0-48.0); HEMOGLOBIN. 12.3 g/dL (12.0-16.0); LYMPHOCYTES % 34.8 % (20.0-50.0); MEAN CORPUSCULAR HEMOGLOBIN 32.5 pg (28.0-32.0); MEAN CORPUSCULAR VOLUME 98.2 fL (81.0-99.0); NEUTROPHILS % 54.7 % (40.0-76.0); PLATELET 209 x1000/uL (130-400); RED BLOOD CELL COUNT 3.79 mill/uL (4.2-5.4); RED CELL DISTRIBUTION WIDTH 13.8 % (11.6-14.6)
[2018-12-04 23:57] LABS: CHLORIDE 107 mEq/L (98-107); PROTHROMBIN TIME 10.1 sec (9.6-11.0)
[2018-12-05] MEDS ORDERED: MORPHINE SULFATE 4 MG/ML CPJ (NOT FOR IM USE) IV SCH (02:25)
[2018-12-05] MEDS ORDERED: ACETAMINOPHEN 325MG TABLET PO ONE (10:30)
[2018-12-05] MEDS ORDERED: ACETAMINOPHEN 325MG TABLET PO NR (16:51)
[2018-12-05] MEDS ORDERED: HYDROCODONE/ACETAMINOPHEN 5/325MG TABLET PO NR (21:12)
[2018-12-05 23:00] VITALS: BP 164/88
[2018-12-05] MEDS ORDERED: CLONIDINE 0.1MG TABLET PO PRN (23:15)
[2018-12-05] MEDS ORDERED: MAGNESIUM/ALUMINUM HYDROXIDE/SIMETHICONE 30ML UDC PO PRN (23:15)
[2018-12-05] MEDS ORDERED: DEXTROSE 50% WATER 50ML SYRINGE IV PRN (23:15)
[2018-12-05] MEDS ORDERED: GUAIFENESIN 200MG/10ML SUGAR FREE UDC PO PRN (23:15)
[2018-12-05] MEDS ORDERED: NA PHOS,M-B/NA PHOS,DI-BA ENEMA 118ML PR PRN (23:15)
[2018-12-05] MEDS ORDERED: ENOXAPARIN 40MG/0.4ML SYR SUBCUT SCH (23:15)
[2018-12-05] MEDS ORDERED: IPRATROPIUM/ALBUTEROL 0.5-3(2.5)MG/3ML NEB INH PRN (23:15)
[2018-12-05] MEDS ORDERED: DOCUSATE SODIUM 100MG CAPSULE PO PRN (23:15)
[2018-12-06] VITALS: BP 164/88
[2018-12-06] MEDS: MORPHINE SULFATE 4 MG/ML CPJ (NOT FOR IM USE) IV PRN ×2 (00:45→11:03)
[2018-12-06] MEDS: ONDANSETRON HCL 4MG/2ML INJ IV PRN ×2 (00:46→11:03)
[2018-12-06] MEDS ORDERED: BISA-81 MT (01:26)
[2018-12-06] MEDS ORDERED: RISP2 MT (01:26)
[2018-12-06] MEDS ORDERED: CHOL100044 MT (01:26)
[2018-12-06] MEDS ORDERED: ACET-2708 PO (01:26)
[2018-12-06] MEDS ORDERED: DIVA-73 MT (01:26)
[2018-12-06] MEDS ORDERED: LUBI24CA5 PO (01:26)
[2018-12-06] MEDS ORDERED: BUPR-43 MT (01:26)
[2018-12-06] MEDS ORDERED: MECL12.584 MT (01:26)
[2018-12-06] MEDS ORDERED: POLY119P2 MT (01:26)
[2018-12-06] MEDS ORDERED: LORA0.5T2 PO (01:26)
[2018-12-06] MEDS ORDERED: ONDA4TAB5 PO (01:26)
[2018-12-06] MEDS: DIPHENHYDRAMINE 50MG/ML VIAL IV PRN ×2 (01:35→21:16)
[2018-12-06 04:00] VITALS: BP 137/66
[2018-12-06 06:23] LABS: BASOPHILS % 0.5 % (0.0-2.0); EOSINOPHILS % 2.9 % (0.0-5.0); HEMATOCRIT. 38.9 % (36.0-48.0); HEMOGLOBIN. 13.1 g/dL (12.0-16.0); LYMPHOCYTES % 43.8 % (20.0-50.0); MEAN CORPUSCULAR HEMOGLOBIN 33.1 pg (28.0-32.0); MEAN CORPUSCULAR VOLUME 98.1 fL (81.0-99.0); MONOCYTES % 7.9 % (2.0-8.0); NEUTROPHILS % 44.9 % (40.0-76.0); PLATELET 215 x1000/uL (130-400); RED BLOOD CELL COUNT 3.97 mill/uL (4.2-5.4); RED CELL DISTRIBUTION WIDTH 13.6 % (11.6-14.6)
[2018-12-06] MEDS: SODIUM CHLORIDE 0.9% INJ 3ML FLUSH IVF SCH ×3 (06:39→23:27)
[2018-12-06 06:42] LABS: CHLORIDE 104 mEq/L (98-107)
[2018-12-06 06:51] LABS: LDL CHOLESTEROL 70 mg/dL (5-100)
[2018-12-06 06:52] LABS: HDL CHOLESTEROL 51 mg/dL (40-59)
[2018-12-06] MEDS: BLOOD SUGAR DIAGNOSTIC STRIP TEST SCH ×2 (07:10→13:12)
[2018-12-06] MEDS: INSULIN LISPRO 100 UNITS/ML SUBCUT SCH ×2 (07:11→12:50)
[2018-12-06 08:00] VITALS: BP 114/67
[2018-12-06] MEDS: ENOXAPARIN 30MG/0.3ML SYR SUBCUT SCH ×2 (09:04→20:19)
[2018-12-06 12:00] VITALS: BP 140/86
[2018-12-06] MEDS: HYDROCODONE/ACETAMINOPHEN 5/325MG TABLET PO PRN ×2 (13:17→18:13)
[2018-12-06 16:00] VITALS: BP 125/62
[2018-12-06 20:00] VITALS: BP 162/87
[2018-12-06] MEDS: HYDROCODONE/ACETAMINOPHEN 10/325MG TABLET PO PRN (20:40)
[2018-12-07] VITALS: BP 160/89
[2018-12-07] MEDS: DIPHENHYDRAMINE 50MG/ML VIAL IV PRN ×3 (01:27→20:01)
[2018-12-07 04:00] VITALS: BP 149/75
[2018-12-07] MEDS: SODIUM CHLORIDE 0.9% INJ 3ML FLUSH IVF SCH (06:28)
[2018-12-07 08:00] VITALS: BP 112/67
[2018-12-07] MEDS: ENOXAPARIN 30MG/0.3ML SYR SUBCUT SCH ×2 (08:23→20:38)
[2018-12-07] MEDS: HYDROCODONE/ACETAMINOPHEN 10/325MG TABLET PO PRN ×2 (11:46→20:01)
[2018-12-07 12:00] VITALS: BP 142/76
[2018-12-07 16:00] VITALS: BP_SYST 118; BP_SYST 140; BP_DIAS 51; BP_DIAS 75
[2018-12-07] MEDS: MORPHINE SULFATE 4 MG/ML CPJ (NOT FOR IM USE) IV PRN (16:28)
[2018-12-07] MEDS: ONDANSETRON HCL 4MG/2ML INJ IV PRN (16:36)
[2018-12-07 20:00] VITALS: BP 140/72
[2018-12-08] VITALS (7 sets, daily range): BP systolic 125–157; BP diastolic 60–80
[2018-12-08] MEDS: DIPHENHYDRAMINE 50MG/ML VIAL IV PRN ×2 (04:45→09:14)
[2018-12-08] MEDS: HYDROCODONE/ACETAMINOPHEN 10/325MG TABLET PO PRN ×4 (04:45→22:06)
[2018-12-08] MEDS: ENOXAPARIN 30MG/0.3ML SYR SUBCUT SCH ×2 (09:13→21:58)
[2018-12-08] MEDS: ONDANSETRON HCL 4MG/2ML INJ IV PRN (09:15)
[2018-12-08] MEDS: MORPHINE SULFATE 4 MG/ML CPJ (NOT FOR IM USE) IV PRN (09:16)
[2018-12-08] MEDS: SODIUM CHLORIDE 0.9% INJ 3ML FLUSH IVF SCH (22:00)
[2018-12-09] VITALS: BP 142/69
[2018-12-09 04:00] VITALS: BP 167/89
[2018-12-09] MEDS: SODIUM CHLORIDE 0.9% INJ 3ML FLUSH IVF SCH (05:08)
[2018-12-09 07:55] VITALS: BP 131/77
[2018-12-09] MEDS: HYDROCODONE/ACETAMINOPHEN 10/325MG TABLET PO PRN ×2 (08:32→16:28)
[2018-12-09] MEDS: ENOXAPARIN 30MG/0.3ML SYR SUBCUT SCH (08:34)
[2018-12-09 12:00] VITALS: BP 143/74
[2018-12-09 16:00] VITALS: BP 125/67
[2018-12-09 16:28] VITALS: BP 143/74
== END 2018-12-09 18:45 | DRG 563 ==
LOC: ER 17:06 → 6EST 12-05 21:16 → ENRESERV 12-05 22:15
PROVIDERS: ADMIT Family Medicine; ATTEND Family Medicine
PROC: 2W3TX1Z Immobilization of Left Foot using Splint (ICD-10-PCS; principal; 2018-12-04)
DX: S92.252A Displaced fracture of navicular [scaphoid] of left foot, initial encounter for closed fracture (principal); Z68.41 Body mass index [BMI] 40.0-44.9, adult; E66.9 Obesity, unspecified; E78.5 Hyperlipidemia, unspecified; L89.90 Pressure ulcer of unspecified site, unspecified stage; E66.01 Morbid (severe) obesity due to excess calories; I10 Essential (primary) hypertension; R26.9 Unspecified abnormalities of gait and mobility; F32.9 Major depressive disorder, single episode, unspecified; K59.00 Constipation, unspecified; W05.0XXA Fall from non-moving wheelchair, initial encounter; Y93.89 Activity, other specified; Z99.3 Dependence on wheelchair; Y92.89 Other specified places as the place of occurrence of the external cause; Z86.73 Personal history of transient ischemic attack (TIA), and cerebral infarction without residual deficits; Y99.8 Other external cause status; Z98.84 Bariatric surgery status; Z88.6 Allergy status to analgesic agent; Z88.1 Allergy status to other antibiotic agents; Z91.011 Allergy to milk products; Z88.8 Allergy status to other drugs, medicaments and biological substances; Z91.018 Allergy to other foods; Z91.013 Allergy to seafood; Z79.1 Long term (current) use of non-steroidal anti-inflammatories (NSAID); Z79.899 Other long term (current) drug therapy
CPT/HCPCS: 29515; 36415; 71045; 73630; 73700; 80061; 82962; 96374; 96375; 96376; 99284; C1893; J1200; J1650; J2270; J2405

== ENCOUNTER 2019-01-30 10:51 | Emergency (ER) | payer MEDICARE ==
[~2019-01-30] VITALS: Ht 160 cm; Wt 82.0 kg
[~2019-01-30 10:51] MED LIST changes: +ACET-2708 PO; +BISA-81 MT; +BUPR-43 MT; +CHOL100044 MT; -CLOP75TA16 PO; +CLOP75TA4 PO; +DIVA-73 MT; +LORA0.5T2 PO; -LOSA50TA20 PO; +LOSA50TA41 PO; +LUBI24CA5 PO; +MECL12.584 MT; +ONDA4TAB5 PO; +POLY119P2 MT; +RISP2 MT
[2019-01-30] MEDS ORDERED: ASPIRIN 81MG TABLET PO ONE (11:15)
[2019-01-30] MEDS ORDERED: NITROGLYCERIN 0.4MG TABLET SL SL PRN (11:15)
[2019-01-30 11:40] LABS: BASOPHILS % 0.4 % (0.0-2.0); EOSINOPHILS % 2.5 % (0.0-5.0); HEMATOCRIT. 35.8 % (36.0-48.0); HEMOGLOBIN. 11.8 g/dL (12.0-16.0); LYMPHOCYTES % 30.7 % (20.0-50.0); MEAN CORPUSCULAR HEMOGLOBIN 32.5 pg (28.0-32.0); MEAN CORPUSCULAR VOLUME 98.7 fL (81.0-99.0); MEAN PLATELET VOLUME 8.9 fl (7.4-10.4); MONOCYTES % 7.8 % (2.0-8.0); NEUTROPHILS % 58.6 % (40.0-76.0); PLATELET 237 x1000/uL (130-400); RED BLOOD CELL COUNT 3.62 mill/uL (4.2-5.4); RED CELL DISTRIBUTION WIDTH 13.9 % (11.6-14.6)
[2019-01-30] MEDS ORDERED: HYDROCODONE/ACETAMINOPHEN 5/325MG TABLET PO ONE ×2 (12:00→13:30)
[2019-01-30 12:25] LABS: CHLORIDE 109 mEq/L (98-107)
[2019-01-30 17:20] VITALS: BP 144/74
== END 2019-01-30 17:20 | disposition home or self-care (01) ==
LOC: ER 10:51
DX: R07.89 Other chest pain (principal); I11.9 Hypertensive heart disease without heart failure; E78.00 Pure hypercholesterolemia, unspecified; Z86.73 Personal history of transient ischemic attack (TIA), and cerebral infarction without residual deficits; Z95.1 Presence of aortocoronary bypass graft; Z79.899 Other long term (current) drug therapy; Z88.6 Allergy status to analgesic agent; Z88.1 Allergy status to other antibiotic agents; Z91.011 Allergy to milk products; Z91.013 Allergy to seafood; Z91.018 Allergy to other foods; Z88.8 Allergy status to other drugs, medicaments and biological substances
CPT/HCPCS: 36415; 71045; 83880; 84484; 93005; 99284

== ENCOUNTER 2019-04-17 14:13 | Emergency (ER) | payer BC, MEDICAID ==
[~2019-04-17] VITALS: Ht 162.6 cm; Wt 114.0 kg
[2019-04-17] MEDS ORDERED: TRAMADOL 50MG TABLET PO ONE (17:00)
[2019-04-17] MEDS ORDERED: MORPHINE SULFATE 4 MG/ML CPJ (NOT FOR IM USE) IV ONE (18:15)
[2019-04-17 19:40] VITALS: BP 161/86
[2019-04-17] MEDS ORDERED: PREGABALIN 50 MG CAPSULE PO ONE (20:15)
[2019-04-17] MEDS ORDERED: HYDROCODONE/ACETAMINOPHEN 5/325MG TABLET PO ONE (20:15)
[2019-04-17] MEDS ORDERED: ONDANSETRON 4MG ODT PO ONE (20:15)
== END 2019-04-17 21:03 | disposition home or self-care (01) ==
LOC: ER 14:13
DX: R51 Headache (principal); R42 Dizziness and giddiness; E78.00 Pure hypercholesterolemia, unspecified; I10 Essential (primary) hypertension; Z86.73 Personal history of transient ischemic attack (TIA), and cerebral infarction without residual deficits; Z98.890 Other specified postprocedural states; Z87.891 Personal history of nicotine dependence; Z79.899 Other long term (current) drug therapy; Z88.6 Allergy status to analgesic agent; Z91.018 Allergy to other foods; Z88.8 Allergy status to other drugs, medicaments and biological substances; Z91.011 Allergy to milk products
CPT/HCPCS: 96374; 99284; J2270; Q0162

== ENCOUNTER 2019-04-18 13:58 | Emergency (ER) | payer BC, MEDICAID ==
[~2019-04-18] VITALS: Ht 162.6 cm; Wt 113.0 kg
[2019-04-18] MEDS ORDERED: KETOROLAC 30MG/ML VIAL IV STA (14:26)
[2019-04-18] MEDS ORDERED: SODIUM CHLORIDE 0.9% 1,000 ML IV ONE (14:26)
[2019-04-18] MEDS ORDERED: METOCLOPRAMIDE HCL 10MG/2ML VIAL IV ONE (14:30)
[2019-04-18] MEDS ORDERED: ACETAMINOPHEN WITH CODEINE 300/30MG TABLET PO ONE (16:45)
[2019-04-18] MEDS ORDERED: TRAMADOL 50MG TABLET PO ONE (16:45)
[2019-04-18 17:00] VITALS: BP 141/79
== END 2019-04-18 17:05 | disposition home or self-care (01) ==
LOC: ER 14:56
DX: R51 Headache (principal); R42 Dizziness and giddiness; I10 Essential (primary) hypertension; E78.00 Pure hypercholesterolemia, unspecified; I69.354 Hemiplegia and hemiparesis following cerebral infarction affecting left non-dominant side; Z88.6 Allergy status to analgesic agent; Z98.84 Bariatric surgery status; Z91.011 Allergy to milk products; Z91.018 Allergy to other foods; Z91.013 Allergy to seafood; Z90.49 Acquired absence of other specified parts of digestive tract; Z88.8 Allergy status to other drugs, medicaments and biological substances
CPT/HCPCS: 71045; 93005; 96361; 96374; 96375; 99283; J1885; J2765; J7030

== ENCOUNTER 2019-04-21 23:17 | Emergency (ER) | payer BC, MEDICAID ==
[~2019-04-21] VITALS: Ht 162.6 cm; Wt 113.0 kg
[2019-04-22 03:02] LABS: CHLORIDE 109 mEq/L (98-107)
[2019-04-22 03:06] LABS: ETHANOL BLOOD < 10 mg/dL
[2019-04-22 03:08] LABS: BASOPHILS % 0.7 % (0.0-2.0); EOSINOPHILS % 3.2 % (0.0-5.0); HEMOGLOBIN. 12.1 g/dL (12.0-16.0); LYMPHOCYTES % 39.9 % (20.0-50.0); MEAN CORPUSCULAR HEMOGLOBIN 32.9 pg (28.0-32.0); MEAN CORPUSCULAR VOLUME 98.1 fL (81.0-99.0); MEAN PLATELET VOLUME 8.9 fl (7.4-10.4); MONOCYTES % 8.1 % (2.0-8.0); NEUTROPHILS % 48.1 % (40.0-76.0); PLATELET 204 x1000/uL (130-400); RED BLOOD CELL COUNT 3.67 mill/uL (4.2-5.4); RED CELL DISTRIBUTION WIDTH 13.2 % (11.6-14.6)
[2019-04-22 03:24] LABS: INR 0.9; PROTHROMBIN TIME 9.4 sec (9.6-11.0)
[2019-04-22] MEDS ORDERED: KETOROLAC 30MG/ML VIAL IV STA (04:04)
[2019-04-22] MEDS ORDERED: METOCLOPRAMIDE HCL 10MG/2ML VIAL IV ONE (04:15)
[2019-04-22 04:51] LABS: CLARITY URINE TURBID (CLEAR); COLOR URINE YELLOW (YELLOW); KETONES URINE NEGATIVE (NEGATIVE); LEUKOCYTE ESTERASE URINE 2+ (NEGATIVE); NITRITE URINE NEGATIVE (NEGATIVE); OCCULT BLOOD URINE NEGATIVE (NEGATIVE); PROTEIN URINE NEGATIVE (NEGATIVE); SPECIFIC GRAVITY URINE 1.016 (1.005-1.030); UROBILINOGEN URINE 0.2 E.U./dL (0.2-1.0)
[2019-04-22] MEDS ORDERED: ACETAMINOPHEN WITH CODEINE 300/30MG TABLET PO STA (04:58)
[2019-04-22] MEDS ORDERED: CEFTRIAXONE 1 G PREMIX 50 ML IV NR (05:30)
[2019-04-22 06:12] VITALS: BP 148/70
== END 2019-04-22 06:16 | disposition home or self-care (01) ==
LOC: ER 23:56
DX: R51 Headache (principal); N39.0 Urinary tract infection, site not specified; R42 Dizziness and giddiness; E78.00 Pure hypercholesterolemia, unspecified; I10 Essential (primary) hypertension; Z86.73 Personal history of transient ischemic attack (TIA), and cerebral infarction without residual deficits; Z90.49 Acquired absence of other specified parts of digestive tract; Z98.890 Other specified postprocedural states; Z79.899 Other long term (current) drug therapy; Z91.018 Allergy to other foods; Z88.6 Allergy status to analgesic agent; Z88.8 Allergy status to other drugs, medicaments and biological substances; Z91.011 Allergy to milk products
CPT/HCPCS: 36415; 80053; 80320; 81003; 85025; 85610; 96365; 96375; 99283; J0696; J1885; J2765; G0480

== ENCOUNTER 2019-09-13 14:44 | Emergency (ER) | payer BC, MEDICAID ==
[~2019-09-13] VITALS: Ht 170.2 cm; Wt 91.0 kg
[~2019-09-13 14:44] MED LIST changes: -ESCI10TA54 MT; +ESCI10TA61 MT; -MECL-109 PO; +MECL-159 PO; +MECL-183 MT; -MECL12.584 MT; -MELA3TAB PO; +MELA3TAB63 PO; -ONDA4TAB5 PO
[2019-09-13] MEDS ORDERED: HYDROCODONE/ACETAMINOPHEN 5/325MG TABLET PO ONE (20:15)
[2019-09-13 21:40] VITALS: BP 144/77
== END 2019-09-13 22:13 | disposition home or self-care (01) ==
LOC: ER 14:44
DX: L02.31 Cutaneous abscess of buttock (principal); E78.00 Pure hypercholesterolemia, unspecified; I10 Essential (primary) hypertension; Z86.73 Personal history of transient ischemic attack (TIA), and cerebral infarction without residual deficits; Z86.718 Personal history of other venous thrombosis and embolism; Z90.49 Acquired absence of other specified parts of digestive tract; Z98.890 Other specified postprocedural states; Z79.899 Other long term (current) drug therapy; Z91.018 Allergy to other foods; Z88.6 Allergy status to analgesic agent; Z88.5 Allergy status to narcotic agent; Z88.8 Allergy status to other drugs, medicaments and biological substances; Z91.011 Allergy to milk products
CPT/HCPCS: 99283

== ENCOUNTER 2019-11-06 03:13 | Emergency (ER) | payer BC, MEDICAID, MEDICARE ==
[~2019-11-06] VITALS: Ht 165.1 cm; Wt 109.0 kg
[2019-11-06 04:30] VITALS: BP 110/84
== END 2019-11-06 11:16 | disposition home or self-care (01) ==
LOC: ER 03:13
DX: T78.1XXA Other adverse food reactions, not elsewhere classified, initial encounter (principal); R06.02 Shortness of breath; E78.00 Pure hypercholesterolemia, unspecified; I10 Essential (primary) hypertension; Z91.011 Allergy to milk products; Z90.49 Acquired absence of other specified parts of digestive tract; Z98.890 Other specified postprocedural states; Z86.718 Personal history of other venous thrombosis and embolism; Z86.73 Personal history of transient ischemic attack (TIA), and cerebral infarction without residual deficits; Z79.899 Other long term (current) drug therapy; Z88.6 Allergy status to analgesic agent; Z91.018 Allergy to other foods; Z88.8 Allergy status to other drugs, medicaments and biological substances; X58.XXXA Exposure to other specified factors, initial encounter
CPT/HCPCS: 99283

== ENCOUNTER 2020-02-05 13:59 | Inpatient (IN) | payer MEDICARE, MEDICAID ==
[~2020-02-05] VITALS: Ht 162.6 cm; Wt 110.4 kg
[2020-02-05] MEDS ORDERED: HYDROCODONE/ACETAMINOPHEN 5/325MG TABLET PO STA (14:36)
[2020-02-05] MEDS ORDERED: MAGNESIUM/ALUMINUM HYDROXIDE/SIMETHICONE 30ML UDC PO ONE (14:45)
[2020-02-05] MEDS ORDERED: VISCOUS LIDOCAINE 2% 15 ML UDC PO ONE (14:45)
[2020-02-05 14:56] LABS: BASOPHILS % 0.3 % (0.0-2.0); EOSINOPHILS % 2.8 % (0.0-5.0); HEMATOCRIT. 35.9 % (36.0-48.0); HEMOGLOBIN. 12.1 g/dL (12.0-16.0); LYMPHOCYTES % 28.4 % (20.0-50.0); MEAN CORPUSCULAR HEMOGLOBIN 32.5 pg (28.0-32.0); MEAN CORPUSCULAR VOLUME 96.5 fL (81.0-99.0); MEAN PLATELET VOLUME 9.1 fl (7.4-10.4); MONOCYTES % 9.3 % (2.0-8.0); NEUTROPHILS % 59.2 % (40.0-76.0); PLATELET 209 x1000/uL (130-400); RED BLOOD CELL COUNT 3.72 mill/uL (4.2-5.4); RED CELL DISTRIBUTION WIDTH 14.3 % (11.6-14.6)
[2020-02-05 14:59] LABS: CHLORIDE 105 mEq/L (98-107)
[2020-02-05 15:00] LABS: INR 1.2; PARTIAL THROMBOPLASTIN TIME 36.9 sec (23.4-31.0); PROTHROMBIN TIME 13.3 sec (9.6-11.0)
[2020-02-05 17:22] LABS: CLARITY URINE CLEAR (CLEAR); COLOR URINE YELLOW (YELLOW); KETONES URINE TRACE (NEGATIVE); LEUKOCYTE ESTERASE URINE 2+ (NEGATIVE); NITRITE URINE NEGATIVE (NEGATIVE); OCCULT BLOOD URINE TRACE (NEGATIVE); PH URINE 5.5 (4.5-8.0); PROTEIN URINE NEGATIVE (NEGATIVE); SPECIFIC GRAVITY URINE 1.007 (1.005-1.030)
[2020-02-06] VITALS (7 sets, daily range): BP systolic 94–167; BP diastolic 49–86
[2020-02-06] MEDS: ZOLPIDEM TARTRATE 5MG TABLET PO PRN ×2 (01:45→21:21)
[2020-02-06] MEDS: HYDROCODONE/ACETAMINOPHEN 5/325MG TABLET PO PRN ×3 (01:55→18:33)
[2020-02-06] MEDS: AMLODIPINE 10MG TABLET PO SCH (09:17)
[2020-02-06] MEDS: METOPROLOL TARTRATE 50MG TABLET PO SCH ×2 (09:18→21:17)
[2020-02-06] MEDS ORDERED: MAGNESIUM/ALUMINUM HYDROXIDE/SIMETHICONE 30ML UDC PO NR (13:15)
[2020-02-06] MEDS: CEFTRIAXONE 1 G PREMIX 50 ML IV SCH (15:25)
[2020-02-06] MEDS: MAGNESIUM/ALUMINUM HYDROXIDE/SIMETHICONE 30ML UDC PO PRN (17:17)
[2020-02-06] MEDS: FAMOTIDINE 20MG TABLET PO SCH (21:21)
[2020-02-06] MEDS: DIPHENHYDRAMINE 50MG/ML VIAL IV PRN (22:16)
[2020-02-07] VITALS (8 sets, daily range): BP systolic 111–155; BP diastolic 53–134
[2020-02-07] MEDS ORDERED: GUAIFENESIN 200MG/10ML SUGAR FREE UDC PO PRN (03:30)
[2020-02-07] MEDS: HYDROCODONE/ACETAMINOPHEN 5/325MG TABLET PO PRN ×2 (04:23→22:34)
[2020-02-07] MEDS: MAGNESIUM/ALUMINUM HYDROXIDE/SIMETHICONE 30ML UDC PO PRN (05:54)
[2020-02-07] MEDS: AMLODIPINE 10MG TABLET PO SCH (08:54)
[2020-02-07] MEDS: METOPROLOL TARTRATE 50MG TABLET PO SCH ×2 (08:54→21:13)
[2020-02-07] MEDS: DIPHENHYDRAMINE 50MG/ML VIAL IV PRN ×2 (12:47→21:13)
[2020-02-07] MEDS: CEFTRIAXONE 1 G PREMIX 50 ML IV SCH (14:07)
[2020-02-07] MEDS: FAMOTIDINE 20MG TABLET PO SCH (21:13)
[2020-02-08] VITALS (7 sets, daily range): BP systolic 119–157; BP diastolic 57–81
[2020-02-08] MEDS: METOPROLOL TARTRATE 50MG TABLET PO SCH ×2 (10:03→21:59)
[2020-02-08] MEDS: AMLODIPINE 10MG TABLET PO SCH (10:03)
[2020-02-08] MEDS: HYDROCODONE/ACETAMINOPHEN 5/325MG TABLET PO PRN (11:09)
[2020-02-08] MEDS: DIPHENHYDRAMINE 50MG/ML VIAL IV PRN (14:00)
[2020-02-08] MEDS: CEFTRIAXONE 1 G PREMIX 50 ML IV SCH (14:00)
[2020-02-08] MEDS: FAMOTIDINE 20MG TABLET PO SCH (21:59)
== END 2020-02-08 22:11 | DRG 690 ==
LOC: ER 13:59 → 5WST 18:25 → EDBEDREQTM 18:29 → EDBEDREQ 18:29 → ENRESERV 22:43
PROVIDERS: ADMIT Internal Medicine; ATTEND Internal Medicine
DX: N39.0 Urinary tract infection, site not specified (principal); Z68.41 Body mass index [BMI] 40.0-44.9, adult; E44.1 Mild protein-calorie malnutrition; I69.354 Hemiplegia and hemiparesis following cerebral infarction affecting left non-dominant side; K21.9 Gastro-esophageal reflux disease without esophagitis; E66.9 Obesity, unspecified; E78.5 Hyperlipidemia, unspecified; I10 Essential (primary) hypertension; M79.89 Other specified soft tissue disorders; Z86.711 Personal history of pulmonary embolism; Z86.718 Personal history of other venous thrombosis and embolism; Z98.84 Bariatric surgery status; Z90.49 Acquired absence of other specified parts of digestive tract; Z71.3 Dietary counseling and surveillance; Z91.018 Allergy to other foods; Z88.8 Allergy status to other drugs, medicaments and biological substances; Z91.011 Allergy to milk products; Z88.6 Allergy status to analgesic agent; Z91.013 Allergy to seafood; Z79.899 Other long term (current) drug therapy
CPT/HCPCS: 36415; 71045; 80053; 81003; 83880; 84484; 85025; 93005; 93971; 97116; 97162; 99285; J0696; J1200

== ENCOUNTER 2020-08-21 14:26 | Inpatient (IN) | payer MEDICARE, MEDICAID ==
[~2020-08-21] VITALS: Ht 162.6 cm; Wt 106.6 kg
[~2020-08-21 14:26] MED LIST changes: -BUPR-43 MT; +BUPR-46 MT; +CLOP-31 PO; -CLOP75TA4 PO; +ESCI-7 MT; -ESCI10TA61 MT; -MECL-183 MT; +MECL-217 MT; +MELA3TAB40 PO; -MELA3TAB63 PO; -PANT40TA4 PO; +PANT40TA51 PO
[2020-08-22] MEDS ORDERED: DEXAMETHASONE 4MG/ML 1ML VIAL IV ONE (02:45)
[2020-08-22 05:04] LABS: BASOPHILS % 0.1 % (0.0-2.0); EOSINOPHILS % 0.1 % (0.0-5.0); HEMOGLOBIN. 14.2 g/dL (12.0-16.0); LYMPHOCYTES % 23.4 % (20.0-50.0); MEAN CORPUSCULAR HEMOGLOBIN 31.1 pg (28.0-32.0); MEAN CORPUSCULAR VOLUME 96.6 fL (81.0-99.0); MONOCYTES % 10.7 % (2.0-8.0); NEUTROPHILS % 65.7 % (40.0-76.0); PLATELET 135 x1000/uL (130-400); RED BLOOD CELL COUNT 4.56 mill/uL (4.2-5.4); RED CELL DISTRIBUTION WIDTH 15.1 % (11.6-14.6)
[2020-08-22 05:09] LABS: CHLORIDE 103 mEq/L (98-107)
[2020-08-22] MEDS ORDERED: SODIUM CHLORIDE 0.9% 1,000 ML IV NR (05:30)
[2020-08-22] MEDS ORDERED: LEVOFLOXACIN 750MG PREMIX 150 ML IV ONE (07:45)
[2020-08-22] MEDS ORDERED: ONDANSETRON HCL 4MG/2ML INJ IV PRN (08:45)
[2020-08-22] MEDS ORDERED: ENOXAPARIN 30MG/0.3ML SYR SUBCUT SCH (09:30)
[2020-08-22] MEDS: LEVOFLOXACIN 750MG PREMIX 150 ML IV SCH (10:34)
[2020-08-22] MEDS ORDERED: ZOLPIDEM TARTRATE 5MG TABLET PO PRN (22:45)
[2020-08-22] MEDS: ACETAMINOPHEN 325MG TABLET PO PRN (23:36)
[2020-08-23] MEDS: ENOXAPARIN 30MG/0.3ML SYR SUBCUT SCH ×4 (00:05→21:00)
[2020-08-23] MEDS: FAMOTIDINE 20MG TABLET PO SCH ×2 (08:30→20:44)
[2020-08-23] MEDS: LEVOFLOXACIN 750MG PREMIX 150 ML IV SCH (08:31)
[2020-08-23] MEDS: ACETAMINOPHEN 325MG TABLET PO PRN ×4 (08:31→21:58)
[2020-08-23 12:28] VITALS: BP 137/84
[2020-08-23 16:00] VITALS: BP 122/71
[2020-08-23 20:00] VITALS: BP 142/96
[2020-08-23] MEDS ORDERED: LORAZEPAM 2MG/ML CPJ IV NR (20:15)
[2020-08-24] VITALS (9 sets, daily range): BP systolic 124–161; BP diastolic 64–90
[2020-08-24] MEDS: ACETAMINOPHEN 325MG TABLET PO PRN ×3 (03:27→23:18)
[2020-08-24] MEDS: FAMOTIDINE 20MG TABLET PO SCH ×2 (06:18→20:48)
[2020-08-24] MEDS: ENOXAPARIN 30MG/0.3ML SYR SUBCUT SCH ×2 (09:17→20:49)
[2020-08-24] MEDS ORDERED: LEVOFLOXACIN 750MG PREMIX 150 ML IV SCH (09:30)
[2020-08-24] MEDS: METOPROLOL TARTRATE 25MG TABLET PO SCH ×2 (17:00→20:48)
[2020-08-24] MEDS ORDERED: METOPROLOL TARTRATE 25MG TABLET PO NR (17:02)
== END 2020-08-24 23:50 | DRG 177 ==
LOC: ER 14:26 → MICUSO 08-22 04:35 → 7EST 08-23 11:20 → 6WST 08-24 17:45
PROVIDERS: ADMIT Internal Medicine; ATTEND Internal Medicine
DX: U07.1 COVID-19 (principal); J12.89 Other viral pneumonia; E44.0 Moderate protein-calorie malnutrition; Z68.41 Body mass index [BMI] 40.0-44.9, adult; E16.2 Hypoglycemia, unspecified; E78.5 Hyperlipidemia, unspecified; F20.9 Schizophrenia, unspecified; E78.00 Pure hypercholesterolemia, unspecified; Z86.718 Personal history of other venous thrombosis and embolism; Z86.73 Personal history of transient ischemic attack (TIA), and cerebral infarction without residual deficits; Z98.84 Bariatric surgery status; Z86.711 Personal history of pulmonary embolism; Z88.5 Allergy status to narcotic agent; Z88.8 Allergy status to other drugs, medicaments and biological substances; Z79.899 Other long term (current) drug therapy
CPT/HCPCS: 36415; 71045; 80048; 80076; 82962; 83605; 84145; 84484; 85025; 93005; 93970; 96365; 96366; 96372; 96375; 99291; C9803; J1100; J1650; J1956; J2060; J2405; J7040; U0003

== ENCOUNTER 2021-12-10 21:47 | Inpatient (IN) | payer MEDICARE, MEDICAID ==
[~2021-12-10] VITALS: Ht 162.6 cm; Wt 106.6 kg
[2021-12-10 23:33] LABS: BASOPHILS % 0.5 % (0.0-2.0); EOSINOPHILS % 2.1 % (0.0-5.0); HEMATOCRIT. 40.1 % (36.0-48.0); HEMOGLOBIN. 13.1 g/dL (12.0-16.0); LYMPHOCYTES % 32.7 % (20.0-50.0); MEAN CORPUSCULAR HEMOGLOBIN 32.5 pg (28.0-32.0); MEAN PLATELET VOLUME 8.5 fl (7.4-10.4); MONOCYTES % 6.9 % (2.0-8.0); NEUTROPHILS % 57.8 % (40.0-76.0); PLATELET 284 x1000/uL (130-400); RED BLOOD CELL COUNT 4.05 mill/uL (4.2-5.4); RED CELL DISTRIBUTION WIDTH 14.6 % (11.6-14.6)
[2021-12-10 23:37] LABS: CHLORIDE 105 mEq/L (98-107)
[2021-12-11] MEDS ORDERED: HYDROCODONE/ACETAMINOPHEN 5/325MG TABLET PO ONE (03:00)
[2021-12-11 05:11] LABS: CLARITY URINE CLOUDY (CLEAR); COLOR URINE YELLOW (YELLOW); KETONES URINE TRACE (NEGATIVE); LEUKOCYTE ESTERASE URINE 2+ (NEGATIVE); NITRITE URINE POSITIVE (NEGATIVE); OCCULT BLOOD URINE TRACE (NEGATIVE); PH URINE 5.5 (4.5-8.0); PROTEIN URINE NEGATIVE (NEGATIVE); SPECIFIC GRAVITY URINE 1.021 (1.005-1.030)
[2021-12-11] MEDS ORDERED: HYDROCODONE/ACETAMINOPHEN 10/325MG TABLET PO NR (05:30)
[2021-12-11 14:00] VITALS: BP 129/81
[2021-12-11] MEDS ORDERED: ACETAMINOPHEN 325MG TABLET PO PRN (14:15)
[2021-12-11 14:28] VITALS: BP 129/81
[2021-12-11] MEDS ORDERED: ENOXAPARIN 40MG/0.4ML SYR SUBCUT SCH (15:00)
[2021-12-11] MEDS ORDERED: NALOXONE HCL 0.4MG/ML VIAL IV PRN (15:00)
[2021-12-11 16:15] VITALS: BP 128/62
[2021-12-11] MEDS: CEFTRIAXONE 1,000 MG in DEXTROSE 5% WATER 50 ML IV SCH (16:18)
[2021-12-11] MEDS: ENOXAPARIN 30MG/0.3ML SYR SUBCUT SCH ×2 (16:19→22:04)
[2021-12-11] MEDS: HYDROCODONE/ACETAMINOPHEN 5/325MG TABLET PO PRN (16:33)
[2021-12-11 20:00] VITALS: BP 125/84
[2021-12-11] MEDS: ONDANSETRON HCL 4MG/2ML INJ IV PRN (20:09)
[2021-12-11] MEDS: TRAZODONE HCL 50MG TABLET PO SCH (22:05)
[2021-12-12] VITALS: BP 122/67
[2021-12-12 04:00] VITALS: BP 139/74
[2021-12-12 08:07] VITALS: BP 117/60
[2021-12-12] MEDS: ASPIRIN 81MG TABLET PO SCH (09:00)
[2021-12-12] MEDS: ENOXAPARIN 30MG/0.3ML SYR SUBCUT SCH ×2 (09:23→22:09)
[2021-12-12] MEDS: ONDANSETRON HCL 4MG/2ML INJ IV PRN ×2 (09:30→22:09)
[2021-12-12] MEDS: HYDROCODONE/ACETAMINOPHEN 5/325MG TABLET PO PRN ×2 (09:31→17:07)
[2021-12-12 12:16] VITALS: BP 187/99
[2021-12-12 15:40] VITALS: BP 125/74
[2021-12-12] MEDS: CEFTRIAXONE 1,000 MG in DEXTROSE 5% WATER 50 ML IV SCH (17:06)
[2021-12-12] MEDS ORDERED: LEVO500T89 MT (19:59)
[2021-12-12 20:00] VITALS: BP 146/87
[2021-12-12] MEDS: TRAZODONE HCL 50MG TABLET PO SCH (22:09)
[2021-12-13] VITALS: BP 151/77
[2021-12-13 04:00] VITALS: BP 156/95
[2021-12-13 08:00] VITALS: BP 111/72
[2021-12-13] MEDS: ASPIRIN 81MG TABLET PO SCH (08:29)
[2021-12-13] MEDS: HYDROCODONE/ACETAMINOPHEN 5/325MG TABLET PO PRN (08:30)
[2021-12-13] MEDS: ENOXAPARIN 30MG/0.3ML SYR SUBCUT SCH (08:30)
[2021-12-13 12:00] VITALS: BP 112/65
[2021-12-13 12:52] VITALS: BP 112/65
== END 2021-12-13 16:28 | DRG 206 ==
LOC: ER 22:45 → 6WST 12-11 13:25
PROVIDERS: ADMIT Internal Medicine; ATTEND Internal Medicine
DX: M94.0 Chondrocostal junction syndrome [Tietze] (principal); E44.1 Mild protein-calorie malnutrition; N39.0 Urinary tract infection, site not specified; Z68.41 Body mass index [BMI] 40.0-44.9, adult; E66.9 Obesity, unspecified; I10 Essential (primary) hypertension; E78.00 Pure hypercholesterolemia, unspecified; Z86.718 Personal history of other venous thrombosis and embolism; Z88.6 Allergy status to analgesic agent; Z91.011 Allergy to milk products; Z88.5 Allergy status to narcotic agent; Z91.014 Allergy to mammalian meats; Z91.013 Allergy to seafood; Z88.8 Allergy status to other drugs, medicaments and biological substances; Z91.09 Other allergy status, other than to drugs and biological substances; Z79.899 Other long term (current) drug therapy; Z79.1 Long term (current) use of non-steroidal anti-inflammatories (NSAID); Z86.73 Personal history of transient ischemic attack (TIA), and cerebral infarction without residual deficits; Z98.84 Bariatric surgery status; Z79.01 Long term (current) use of anticoagulants; Z86.711 Personal history of pulmonary embolism
CPT/HCPCS: 36415; 71045; 78582; 80053; 81003; 83880; 84484; 85025; 85379; 87077; 87186; 93005; 93306; 93970; 99291; A9558; J0696; J1650; J2405; J7060

== ENCOUNTER 2022-03-04 17:39 | Emergency (ER) | payer MEDICARE, MEDICAID ==
[~2022-03-04] VITALS: Ht 162.6 cm; Wt 91.0 kg
[~2022-03-04 17:39] MED LIST changes: +LEVO500T90 MT
[2022-03-04 17:47] VITALS: BP 136/68
== END 2022-03-04 18:58 | disposition left against medical advice (07) ==
LOC: ER 17:39
DX: Z53.21 Procedure and treatment not carried out due to patient leaving prior to being seen by health care provider (principal)

== ENCOUNTER 2022-03-23 13:30 | Emergency (ER) | payer MEDICARE, MEDICAID ==
[~2022-03-23] VITALS: Ht 162.6 cm; Wt 95.0 kg
[2022-03-23 13:46] VITALS: BP 130/80
== END 2022-03-24 01:50 | disposition left against medical advice (07) ==
LOC: ER 13:30
DX: Z53.21 Procedure and treatment not carried out due to patient leaving prior to being seen by health care provider (principal)

== ENCOUNTER 2022-04-01 20:29 | Emergency (ER) | payer MEDICARE, MEDICAID ==
[~2022-04-01] VITALS: Ht 162.6 cm; Wt 93.0 kg
[2022-04-02] MEDS ORDERED: HYDROCODONE/ACETAMINOPHEN 5/325MG TABLET PO ONE (00:30)
[2022-04-02 01:07] LABS: BASOPHILS % 0.3 % (0.0-2.0); EOSINOPHILS % 1.1 % (0.0-5.0); HEMATOCRIT. 40.1 % (36.0-48.0); LYMPHOCYTES % 36.9 % (20.0-50.0); MEAN CORPUSCULAR HEMOGLOBIN 31.9 pg (28.0-32.0); MEAN CORPUSCULAR VOLUME 98.3 fL (81.0-99.0); MEAN PLATELET VOLUME 8.1 fl (7.4-10.4); NEUTROPHILS % 53.7 % (40.0-76.0); PLATELET 395 x1000/uL (130-400); RED BLOOD CELL COUNT 4.08 mill/uL (4.2-5.4); RED CELL DISTRIBUTION WIDTH 14.1 % (11.6-14.6)
[2022-04-02 01:14] LABS: CHLORIDE 101 mEq/L (98-107)
[2022-04-02 01:56] LABS: CLARITY URINE CLOUDY (CLEAR); COLOR URINE DARK YELLOW (YELLOW); KETONES URINE TRACE (NEGATIVE); LEUKOCYTE ESTERASE URINE 2+ (NEGATIVE); NITRITE URINE POSITIVE (NEGATIVE); OCCULT BLOOD URINE 2+ (NEGATIVE); PH URINE 5.5 (4.5-8.0); PROTEIN URINE TRACE (NEGATIVE); SPECIFIC GRAVITY URINE 1.021 (1.005-1.030)
[2022-04-02] MEDS ORDERED: CEPH500C2 MT (03:51)
[2022-04-02 04:56] VITALS: BP 112/78
== END 2022-04-02 04:57 | disposition home or self-care (01) ==
LOC: ER 20:42
DX: R53.1 Weakness (principal); M79.662 Pain in left lower leg; J45.909 Unspecified asthma, uncomplicated; F31.9 Bipolar disorder, unspecified; E78.00 Pure hypercholesterolemia, unspecified; I10 Essential (primary) hypertension; Z86.73 Personal history of transient ischemic attack (TIA), and cerebral infarction without residual deficits
CPT/HCPCS: 36415; 74176; 80053; 81003; 85025; 87077; 87186; 99284